=== PATIENT | female | born 1995 | race African-American/Black ===

== ENCOUNTER 2017-11-23 12:38 | Emergency (ER) | payer OTHER ==
[~2017-11-23] VITALS: Ht 160 cm; Wt 99.8 kg
[~2017-11-23 12:38] MED LIST: DICYCLOMINE HCL10 MG PO; PRENATAL + DHA1 EAC1 PO; REGLAN10 MG ORAL
[2017-11-23] MEDS ORDERED: Acetaminophen 500mg (ES) tab ORAL ONE (13:15)
--- NOTE | 2017-11-23 13:15 | Emergency Room Report ---
History of Present Illness General Chief Complaint: Abdominal Pain Source: Patient Present Illness HPI 22-year-old female patient presents ER complaining of right lower flank pain 3 days. . Reports first . Patient is currently 10 weeks . Denies vaginal discharge or hematuria. Denies dysuria. Also complaining of left -sided flank pain during this time. Reports pain worse with long periods of walking. Also complaining of diarrhea. Reports diarrhea is watery, denies blood in diarrhea. Denies recent travel. Denies history of GI problems. Denies fever, chest pain, shortness of breath. Denies vomiting. Reports has been seen by INSURANCE WRITER, states this is her first , states his taking vitamins. Denies other acute complaints.denies headache. Annika vagina discharge. Denies hematuria. Denies passage of clots of tissue. Denies HAGAN. Denies syncope or dizziness. Denies injury or trauma. Denies pain radiating down legs. Denies bowel or bladder incontinence. Allergies: Coded Allergies: No Known Allergies (Unverified , 10/26/17) Patient History Past Medical History: see triage record Last Menstrual Period: 09/17/2017 Now: Yes : 1 Para: 0 Reviewed Nursing Documentation: PMH: Agreed; PSxH: Agreed Nursing Documentation-PMH Past Medical History: No History, Except For Review of Systems All Other Systems: negative except mentioned in HPI Physical Exam Vital Signs Date Time Temp Pulse Resp B/P (MAP) Pulse Ox O2 Delivery O2 Flow Rate FiO2 11/23/17 12:43 98.7 70 16 111/61 99 Room Air 98.8 Sp02 EP Interpretation: reviewed, normal General Appearance: well appearing, no apparent distress, alert, GCS 15, non- toxic Head: normocephalic, atraumatic Eyes: bilateral eye normal inspection, bilateral eye PERRL ENT: hearing grossly normal, normal pharynx, no angioedema, normal voice, uvula midline, moist mucus membranes Neck: full range of motion Respiratory: lungs clear, normal breath sounds, no rhonchi, no respiratory distress, no accessory muscle use, no wheezing, speaking full sentences Cardiovascular #1: regular rate, rhythm, no edema Gastrointestinal: non tender, soft, no mass, non-distended, no guarding, no rebound, other - negative obturator, negative Rovsing, no tenderness to palpation at McBurney's point Genitourinary: no CVA tenderness Musculoskeletal: back normal, digits/nails normal, gait/station normal, normal range of motion, non-tender, no calf tenderness, Ace's Sign negative Neurologic: alert, oriented x3, responsive, motor strength/tone normal, SLR negative, sensory intact, cerebellar normal, normal gait, speech normal Psychiatric: mood/affect normal Skin: no rash Lymphatic: no adenopathy Medical Decision Making PA Attestation Dr. Kraus is my supervising Physician whom patient management has been discussed with. Diagnostic Impression: Primary Impression: Abdominal pain during in first trimester Additional Impression: Diarrhea ER Course Pt. presents to the ED c/o abdominal pain, left flank pain, and diarrhea, patient is 10 weeks . Ddx considered but are not limited to UTI, cholelithiasis, cholecystitis, pancreatitis, appendicitis, diverticulitis, constipation, drug use, threatened , miscarriage, ectopic. Begin abdominal pain workup. Provided patient with pain medication. Vital signs: are WNL, pt. is afebrile ORDERS: CBC, CMP, Lipase, UA, US, IV fluids, and medication. ER COURSE: physical exam benign, patient resting comfortably in bed, no acute distress, nontoxic appearing. CBC and CMP normal H&H, no elevation in WBCs Lipase WNL UA negative BHCG 10646 B positive with negative antibody Discuss results with patient Abdominal US negative, appendix WNL, kidneys unremarkable, low suspicion for appendicitis or nephrolithiasis or hydronephrosis. pelvic US shows IUP, FHR 163 Back pain may be MSK in nature, take Tylenol for pain symptoms, advised on rest , ice and heat. F/u with PCP for further treatment and referral. Abdominal pain symptoms may be related to diarrhea. Drink plenty of fluids. Take Tylenol for pain symptoms. Does not require abx at this time. Patient reports relief of pain symptoms while in the ER. ER precautions given. F/u with OBGYN. Do not take Ibuprofen/ Motrin for pain symptoms. patient resting comfortably in no acute distress, nontoxic appearing, okay for outpatient treatment. DISCHARGE: Rx provided for Tylenol At this time pt. is stable for d/c to home. Patient resting comfortably, in no acute distress, nontoxic appearing, talking without difficulty. Rx provided to patient. Patient to take medications as instructed Will provide with patient care instructions and any necessary prescriptions. Care plan and follow-up instructions provided. Patient instructed to follow-up with primary care provider in 3 - 5 days. Patient questions asked and answered. Patient reports understanding and agreement to treatment plan. ER precautions given. Patient instructed to return to ER immediately for any new or worsening of symptoms including but not limited to increasing SOB, persistent fever, worsening of pain symptoms, intractable vomiting, blood in stool, urine, and/or emesis. - Please note that this Emergency Department Report was dictated using [employer] assembler technology software, occasionally this can lead to erroneous entry secondary to interpretation by the dictation equipment. Labs Test 11/23/17 13:20 White Blood Count 9.7 K/UL (4.8-10.8) Red Blood Count 5.33 M/UL (4.20-5.40) Hemoglobin 13.4 G/DL (12.0-16.0) Hematocrit 41.5 % (37.0-47.0) Mean Corpuscular Volume 78 FL (80-99) Mean Corpuscular Hemoglobin 25.1 PG (27.0-31.0) Mean Corpuscular Hemoglobin Concent 32.3 G/DL (32.0-36.0) Red Cell Distribution Width 14.2 % (11.6-14.8) Platelet Count 330 K/UL (150-450) Mean Platelet Volume 6.5 FL (6.5-10.1) Neutrophils (%) (Auto) 72.9 % (45.0-75.0) Lymphocytes (%) (Auto) 18.2 % (20.0-45.0) Monocytes (%) (Auto) 6.8 % (1.0-10.0) Eosinophils (%) (Auto) 1.2 % (0.0-3.0) Basophils (%) (Auto) 1.0 % (0.0-2.0) Urine Color Pale yellow Urine Appearance Clear Urine pH 8 (4.5-8.0) Urine Specific [place] 1.015 (1.005-1.035) Urine Protein Negative (NEGATIVE) Urine Glucose (UA) Negative (NEGATIVE) Urine Ketones Negative (NEGATIVE) Urine Blood Negative (NEGATIVE) Urine Nitrite Negative (NEGATIVE) Urine Bilirubin Negative (NEGATIVE) Urine Urobilinogen Normal MG/DL (0.0-1.0) Urine Leukocyte Esterase Negative (NEGATIVE) Sodium Level 139 MMOL/L (136-145) Potassium Level 4.2 MMOL/L (3.5-5.1) Chloride Level 105 MMOL/L (98-107) Carbon Dioxide Level 22 MMOL/L (21-32) Anion Gap 12 mmol/L (5-15) Blood Urea Nitrogen 5 mg/dL (7-18) Creatinine 0.5 MG/DL (0.55-1.30) Estimat Glomerular Filtration Rate > 60 mL/min (>60) Glucose Level 90 MG/DL (74-106) Calcium Level 9.3 MG/DL (8.5-10.1) Total Bilirubin 0.2 MG/DL (0.2-1.0) Aspartate Amino Transf (AST/SGOT) 26 U/L (15-37) Alanine Aminotransferase (ALT/SGPT) 48 U/L (12-78) Alkaline Phosphatase 68 U/L (46-116) Total Protein 7.1 G/DL (6.4-8.2) Albumin 3.3 G/DL (3.4-5.0) Globulin 3.8 g/dL Albumin/Globulin Ratio 0.9 (1.0-2.7) Lipase 76 U/L (73-393) Human Chorionic Gonadotropin, Quant 58930 mIU/mL (1-6) CT/MRI/US Diagnostic Results CT/MRI/US Diagnostic Results : Imaging Test Ordered: pelvic and abdominal ultrasound Impression IUP FHR 163 no torsion Abdominal US WNL No kidney stones, no hydronephrosis per US sales technician Last Vital Signs Date Time Temp Pulse Resp B/P (MAP) Pulse Ox O2 Delivery O2 Flow Rate FiO2 11/23/17 12:43 98.7 70 16 111/61 99 Room Air 98.8 Status: improved Disposition: HOME, SELF-CARE Condition: Stable Scripts Acetaminophen* (TYLENOL EXTRA STRENGTH*) 500 Mg Tablet 500 MG ORAL Q8H PRN for Prn Headache/Temp > 101, #30 TAB 0 Refills Prov: Felipe Carroll 11/23/17 Referrals: NON PHYSICIAN (PCP) Patient Instructions: Abdominal Pain During , Back Pain, Adult, Easy- to-Read, Diarrhea, Adult, [id number] Additional Instructions: Followup with OBGYN in 1-2 days. Followup with PCP. Take medications as directed. Take Tylenol for pain, do not take Ibuprofen. Drink plenty of fluids to prevent dehydration. Patient questions asked and answered. ER precautions given, patient instructed to return to ER immediately for any new or worsening of symptoms including but not limited to chest pain, SOB, intractable vomiting, profuse vaginal bleeding, abdominal pain. [facility] [place] [id number] Blood: B positive with negative antibody Felipe Carroll Nov 23, 2017 13:15
[2017-11-23 13:38] LABS: EOSINOPHILS % (AUTO) 1.2 % (0.0-3.0); HEMATOCRIT 41.5 % (37.0-47.0); HEMOGLOBIN 13.4 G/DL (12.0-16.0); LYMPHOCYTES % (AUTO) 18.2 % (20.0-45.0); MEAN CORPUSCULAR VOLUME 78 FL (80-99); MONOCYTES % (AUTO) 6.8 % (1.0-10.0); NEUTROPHILS % (AUTO) 72.9 % (45.0-75.0); PLATELET COUNT 330 K/UL (150-450); RED BLOOD COUNT 5.33 M/UL (4.20-5.40); RED CELL DISTRIBUTION WIDTH 14.2 % (11.6-14.8); WHITE BLOOD COUNT 9.7 K/UL (4.8-10.8)
[2017-11-23 13:42] LABS: APPEARANCE,URINE CLEAR; BILIRUBIN, URINE NEGATIVE (NEGATIVE); COLOR,URINE PALE YELLOW; GLUCOSE, URINE (UA) NEGATIVE (NEGATIVE); KETONES,URINE NEGATIVE (NEGATIVE); LEUKOCYTE ESTERASE ,URINE NEGATIVE (NEGATIVE); NITRITE,URINE NEGATIVE (NEGATIVE); PH,URINE 8 (4.5-8.0); PROTEIN,URINE NEGATIVE (NEGATIVE); UROBILINOGEN,URINE NORMAL MG/DL (0.0-1.0)
[2017-11-23 13:53] LABS: ANION GAP 12 mmol/L (5-15); BLOOD UREA NITROGEN 5 mg/dL (7-18); CALCIUM 9.3 MG/DL (8.5-10.1); CARBON DIOXIDE 22 MMOL/L (21-32); CHLORIDE 105 MMOL/L (98-107); CREATININE 0.5 MG/DL (0.55-1.30); POTASSIUM 4.2 MMOL/L (3.5-5.1); SODIUM 139 MMOL/L (136-145)
[2017-11-23 13:57] LABS: ALANINE AMINOTRANSFERASE 48 U/L (12-78); ALBUMIN 3.3 G/DL (3.4-5.0); ALBUMIN/GLOBULIN RATIO 0.9 (1.0-2.7); ALKALINE PHOSPHATASE 68 U/L (46-116); ASPARTATE AMINO TRANSFERASE 26 U/L (15-37); BILIRUBIN,TOTAL 0.2 MG/DL (0.2-1.0)
[2017-11-23] MEDS ORDERED: TYLENOL EXTRA500 MG ORAL (16:04)
--- NOTE | 2017-11-23 16:20 | Diagnostic Imaging Report ---
Indication: Abdominal pain Technique: Pringle-scale and duplex images of the upper abdomen were obtained. Doppler interrogation of the hepatic vessels Comparison: none Findings: Gallbladder is unremarkable, without stones, wall thickening, nor pericholecystic fluid. Sonographic Pascual's sign is negative. Common bile duct measures 4 mm in diameter. No intrahepatic biliary ductal dilatation. Liver demonstrates normal echogenicity, no focal abnormality. Portal vein and hepatic veins are patent. Pancreas is unremarkable. Spleen is unremarkable. Left kidney measures 11.6 cm in length. Right kidney measures 11.2 cm length. Both kidneys demonstrate normal echogenicity. There is no hydronephrosis. No focal abnormality . Non-aneurysmal abdominal aorta . Impression: Negative
--- NOTE | 2017-11-23 16:25 | Diagnostic Imaging Report ---
Indication: Pelvic pain, positive test Technique: Transabdominal and transvaginal images of the pelvis. Doppler interrogation of the ovaries and adnexa. Comparison: none Findings: Uterus measures 12.8 cm length by 5.3 cm AP. Within the endometrium, there is a gestational sac. There is a yolk sac. There is a pole with a crown-rump length of 26 mm, corresponding to an assessment gestational age of 9 weeks 2 days. Estimated gestational age by dates is 10 weeks 3 days. Estimated date of delivery is 06/23/2018 there is positive heart activity, heart rate 163 bpm. No subchorionic hemorrhage demonstrated. The cervix is closed, endocervical canal measuring 3.2 cm. Tiny cervical nabothian cyst is noted. There is trace free cul-de-sac fluid. Left ovary measures 4.4 cm length. Right ovary measures 3.8 cm length. Both ovaries demonstrate normal flow on Doppler imaging. No myometrial abnormality Impression: 9 week 2 day, by crown-rump length measurement, single live intrauterine . No unusual features Trace free cul-de-sac fluid, presumably physiologic Incidental finding small cervical nabothian cyst
[2017-11-23 17:25] VITALS: BP 111/61
== END 2017-11-23 17:26 | disposition home or self-care (01) ==
LOC: EMR 12:55
DX: O26.891 Other specified pregnancy related conditions, first trimester (principal); Z3A.10 10 weeks gestation of pregnancy; R10.31 Right lower quadrant pain; R19.7 Diarrhea, unspecified; N88.8 Other specified noninflammatory disorders of cervix uteri
CPT/HCPCS: 36415; 76700; 76811; 80053; 81003; 83690; 84702; 85025; 86850; 86900; 86901; 96360; 99284

== ENCOUNTER 2017-12-25 14:39 | Emergency (ER) | payer OTHER ==
[~2017-12-25] VITALS: Ht 160 cm; Wt 92.1 kg
[~2017-12-25 14:39] MED LIST changes: +TYLENOL EXTRA500 MG ORAL
--- NOTE | 2017-12-25 15:22 | Emergency Room Report ---
History of Present Illness General Chief Complaint: Headache Source: Patient, Medical Record Present Illness HPI 22-year-old female presents to the emergency department complaining of persistent cough, subjective fevers, 6 out of 10 in severity sore throat as well as headaches 2 days. Patient reports ill contact was her and his friends who had similar symptoms several days prior. Patient states she is up- to-date with vaccinations except for this year's flu vaccination. Patient also reports that she is 14 weeks is . She denies nausea or vomiting. Patient reports that when she coughs she has pain in her rib cage as well as abdomen. Denies vaginal bleeding or discharge. She denies photophobia, neck pain or stiffness, ear pain or changes in vision. He denies unilateral weaknesses or paresthesia. Allergies: Coded Allergies: No Known Allergies (Unverified , 12/25/17) Patient History Past Medical History: see triage record Past Surgical History: none Pertinent Family History: none Last Menstrual Period: Dec 2017 Now: Yes Reviewed Nursing Documentation: PMH: Agreed; PSxH: Agreed Nursing Documentation-PMH Past Medical History: No History, Except For Review of Systems All Other Systems: negative except mentioned in HPI Physical Exam Vital Signs Date Time Temp Pulse Resp B/P (MAP) Pulse Ox O2 Delivery O2 Flow Rate FiO2 12/25/17 14:43 98.8 96 15 113/71 100 Room Air Sp02 EP Interpretation: reviewed, normal General Appearance: no apparent distress, alert, GCS 15, non-toxic Head: normocephalic, atraumatic Eyes: bilateral eye normal inspection, bilateral eye PERRL ENT: hearing grossly normal, normal voice Neck: full range of motion Respiratory: chest non-tender, lungs clear, normal breath sounds, no respiratory distress, no accessory muscle use, no wheezing, speaking full sentences Cardiovascular #1: regular rate, rhythm Gastrointestinal: non tender, soft Rectal: deferred Genitourinary: normal inspection, no CVA tenderness Musculoskeletal: back normal, gait/station normal, normal range of motion, non- tender Neurologic: alert, oriented x3, responsive, motor strength/tone normal, sensory intact, speech normal, grossly normal Psychiatric: judgement/insight normal Skin: normal color, no rash, warm/dry, well hydrated Lymphatic: no adenopathy Medical Decision Making PA Attestation Dr. pierson is my supervising Physician whom patient management has been discussed with. Diagnostic Impression: Primary Impression: Upper respiratory infection, viral Additional Impression: Headache Qualified Codes: R51 - Headache ER Course 22-year-old female presents to the emergency department complaining of persistent cough, subjective fevers, 6 out of 10 in severity sore throat as well as headaches 2 days. Patient reports ill contact was her and his friends who had similar symptoms several days prior. Patient states she is up- to-date with vaccinations except for this year's flu vaccination. Patient also reports that she is 14 weeks is . She denies nausea or vomiting. She reports nasal congestion and rhinorrhea as well. Patient reports that when she coughs she has pain in her rib cage as well as abdomen. Denies vaginal bleeding or discharge. She denies photophobia, neck pain or stiffness, ear pain or changes in vision. He denies unilateral weaknesses or paresthesia. Ddx considered but are not limited to URI, pneumonia, PE, strep pharyngitis, meningitis, influenza, OM/OE, threatened just to name a few. Vital signs: Pt. is afebrile, the remaining VS are WNL H&PE are most consistent with Viral respiratory infection- will treat conservatively - no meningeal signs, Lungs are clear and oropharynx is not involved, no evidence of bacterial infection at this time. ORDERS -UA: unremarkable ED INTERVENTIONS: -Tylenol PO -I do not identify an emergent condition at this time. With current presentation , pt. is stable for close outpatient follow up and conservative treatment. D/ w pt. to return promptly to ED with worsening or new symptoms.- Pt. verbalizes' understanding and agreement with proposed treatment plan. DISCHARGE: At this time pt. is stable for d/c to home. Will provide printed patient care instructions, and any necessary prescriptions. Care plan and follow up instructions have been discussed with the patient prior to discharge. Labs Test 12/25/17 15:00 Urine Color Yellow Urine Appearance Clear Urine pH 7 (4.5-8.0) Urine Specific [place] 1.010 (1.005-1.035) Urine Protein Negative (NEGATIVE) Urine Glucose (UA) Negative (NEGATIVE) Urine Ketones 4+ (NEGATIVE) Urine Blood Negative (NEGATIVE) Urine Nitrite Negative (NEGATIVE) Urine Bilirubin Negative (NEGATIVE) Urine Urobilinogen 1 MG/DL (0.0-1.0) Urine Leukocyte Esterase Negative (NEGATIVE) Last Vital Signs Date Time Temp Pulse Resp B/P (MAP) Pulse Ox O2 Delivery O2 Flow Rate FiO2 12/25/17 14:43 98.8 96 15 113/71 100 Room Air Disposition: HOME, SELF-CARE Condition: Stable Scripts Acetaminophen* (TYLENOL EXTRA STRENGTH*) 500 Mg Tablet 500 MG ORAL Q6H PRN for Mild Pain/Temp > 100.5, #20 TAB 0 Refills Prov: Silvia Helms 12/25/17 Guaifenesin (Guaifenesin) 1,200 Mg Tab.er.12h 1200 MG PO Q12HR, #20 TAB Prov: Silvia Helms 12/25/17 Referrals: NON PHYSICIAN (PCP) Patient Instructions: Upper Respiratory Infection, Adult, [id number] Additional Instructions: Take medications as directed. Follow up with a Primary Care Provider or OBGYN in 3 days, even if your symptoms have resolved. --Please review list of primary care clinics, if you do not already have a primary care provider Return sooner to ED if new symptoms occur, or current symptoms become worse. - Please note that this Emergency Department Report was dictated using [employer] aide technology software, occasionally this can lead to erroneous entry secondary to interpretation by the dictation equipment. Silvia Helms Dec 25, 2017 15:22
[2017-12-25 15:29] LABS: APPEARANCE,URINE CLEAR; BILIRUBIN, URINE NEGATIVE (NEGATIVE); GLUCOSE, URINE (UA) NEGATIVE (NEGATIVE); KETONES,URINE 4+ (NEGATIVE); LEUKOCYTE ESTERASE ,URINE NEGATIVE (NEGATIVE); NITRITE,URINE NEGATIVE (NEGATIVE); PH,URINE 7 (4.5-8.0); PROTEIN,URINE NEGATIVE (NEGATIVE); UROBILINOGEN,URINE 1 MG/DL (0.0-1.0)
[2017-12-25 15:31] LABS: COLOR,URINE YELLOW
[2017-12-25 15:44] VITALS: BP 113/71
[2017-12-25] MEDS ORDERED: GUAIFENESIN1200 MG PO (15:44)
[2017-12-25] MEDS ORDERED: TYLENOL EXTRA500 MG ORAL (15:44)
[2017-12-25 16:08] VITALS: BP 115/75
== END 2017-12-25 16:06 | disposition home or self-care (01) ==
LOC: EMR 15:07
DX: O99.512 Diseases of the respiratory system complicating pregnancy, second trimester (principal); Z3A.14 14 weeks gestation of pregnancy; B34.9 Viral infection, unspecified; O26.899 Other specified pregnancy related conditions, unspecified trimester; R51 Headache
CPT/HCPCS: 81003; 99283

== ENCOUNTER 2018-02-10 08:58 | Emergency (ER) | payer OTHER ==
[~2018-02-10] VITALS: Ht 160 cm; Wt 95.3 kg
[~2018-02-10 08:58] MED LIST changes: +GUAIFENESIN1200 MG PO
[2018-02-10 09:05] VITALS: BP 110/70
--- NOTE | 2018-02-10 09:05 | NUR ---
ED Nurse Note: PT WALKED IN TO ER TODAY FROM HOME. AOX4. PT C/O LOWER ABDOMINAL PAIN, 07/15, X THIS AM. PT ALSO C/O BURNING SENSATION WHILE URINATING X THIS AM. PT DENIES ANY VAGINAL DISCHARGE, SWELLING, OR BLEEDING. PT STATES SHE IS 21 WEEKS . LAST APPT WITH OB 01/11/18.
--- NOTE | 2018-02-10 09:50 | Emergency Room Report ---
History of Present Illness General Chief Complaint: Female Urogenital Problems Source: Patient Present Illness HPI She is a 23-year-old female at approximately 21 weeks who presented after increased lower abdominal discomfort. Patient had gradual onset of symptoms. Here she reports having crampy sensation to the lower abdomen. This has been present since she woke up this morning. She denies any associated dysuria. She denies any prior bleeding or leakage of fluid. She states that she has been having normal movement. Ultrasound previously had been normal at her last OB visit. She denies any significant vomiting. She had not been having any diarrhea. Allergies: Coded Allergies: No Known Allergies (Unverified , 12/25/17) Patient History Past Medical History: see triage record Last Menstrual Period: 09/11/17 Now: No Reviewed Nursing Documentation: PMH: Agreed; PSxH: Agreed Nursing Documentation-PMH Past Medical History: No History, Except For Review of Systems All Other Systems: negative except mentioned in HPI Physical Exam Vital Signs Date Time Temp Pulse Resp B/P (MAP) Pulse Ox O2 Delivery O2 Flow Rate FiO2 02/10/18 09:02 98.1 75 20 106/69 98 Room Air General Appearance: well appearing, no apparent distress, alert, GCS 15 Head: normocephalic, atraumatic ENT: hearing grossly normal, normal voice Neck: full range of motion, supple Respiratory: lungs clear, normal breath sounds, no respiratory distress, speaking full sentences Cardiovascular #1: normal inspection, normal peripheral pulses, regular rate, rhythm, no edema Gastrointestinal: normal inspection, no mass, other - gravid uterus Musculoskeletal: normal inspection, back normal, no calf tenderness Neurologic: normal inspection, alert, oriented x3, normal gait Psychiatric: mood/affect normal Skin: no rash Medical Decision Making Diagnostic Impression: Primary Impression: Intrauterine ER Course . Present for lower abdominal pain. Differential diagnosis include was not limited to appendicitis, gastroenteritis, premature labor, ruptured ectopic among others. Patient has a benign exam and does not appear to require any further imaging or laboratory testing at this time. That ultrasound was performed and shows evidence of intrauterine with adequate heart tones. Patient denies any recent trauma. She was noted to not have any vaginal bleeding. Patient was advised that she would need to follow-up with labor and delivery and was offered transfer which she declined. Patient stated that she would follow-up with labor and delivery. Patient does not appear to be in any respiratory distress and does not appear to be in active labor at this time.Appears to be stable for discharge. Last Vital Signs Date Time Temp Pulse Resp B/P (MAP) Pulse Ox O2 Delivery O2 Flow Rate FiO2 02/10/18 09:05 98.3 70 18 110/70 98 Room Air Status: improved Disposition: HOME, SELF-CARE Condition: Stable Patient Instructions: Abdominal Pain During Additional Instructions: Follow up with [facility] for recheck. Logan Guillaume MD Feb 10, 2018 09:50
[2018-02-10 09:55] VITALS: BP 112/74
--- NOTE | 2018-02-10 09:57 | NUR ---
ER Nurse Note: PT SITTING PEACEFULLY IN BED IN NAD. AOX4. DISCHARGE PAPERWORK EXPLAINED TO PT. PT VERBALIZES UNDERSTANDING AND DENIES ANY QUESTIONS AT THIS TIME. DISCHARGE PAPERWORK GIVEN TO PT AND ID WRISTBAND REMOVED. PT WALKED OUT OF ER WITH STEADY GAIT WITH ALL BELONGINGS.
== END 2018-02-10 09:57 | disposition home or self-care (01) ==
LOC: EMR 09:40
DX: O26.892 Other specified pregnancy related conditions, second trimester (principal); Z3A.21 21 weeks gestation of pregnancy; R10.30 Lower abdominal pain, unspecified
CPT/HCPCS: 99282